=== PATIENT | male | born 1970 | race Caucasian/White ===

== ENCOUNTER 2018-10-24 08:10 | Outpatient (CLI) | payer OTHER ==
--- NOTE | 2018-10-24 09:21 | MRI ---
FMR of the right knee without contrast INDICATION: Concern for medial meniscal tear; patient injured right knee while playing basketball and has had continued right knee pain over one month COMPARISON: None FINDINGS: There is mild mucoid degeneration of the ACL without evidence of discrete tear. There are traction cy sts underlying the tibial spines measuring up to 2.0 x 1.8 cm. There is a mild joint effusion. There is a mild medial suprapatellar synovial plica. There is no evidence of full-thickness tear involving the MCL, PCL or LCLC. The extensor mechanism is intact; however, there is some increased T2 signal involving the proximal patellar tendon and adjace nt Hoffa's fat pad suspicious for mild patellar tendinitis. No full-thickness defect is seen involving the patellar articular cartilage: However, there is a part ial thickness articular cartilage fissure involving the medial patellar facet on image 20 of series 3 measuring 1 mm. The medial and lateral menisci are intact. There is mild chondrosis involving the lateral tibial plateau without evidence of full-thickness dung dral thinning. Very mild areas of chondrosis involving the anterior and medial aspect of the medial f emoral condyle without evidence of full-thickness defect. No bone marrow signal abnormality is grossl y evident. Visualized popliteus and IT band are normal appearing. IMPRESSION: 1. No evidence for meniscal tear. 2. Some diffuse enlargement and increased T2 signal involving the ACL suspicious more so for mucoid d egeneration than ACL sprain. There are degenerative traction-like cyst like abnormalities involving t he proximal tibia under lying the tibial spines. 3. Mild chondrosis involving the femoral tibial and patellofemoral compartments without evidence of a full-thickness defect. 4. Mild proximal patellar tendinosis.
== END 2018-10-24 08:11 | disposition home or self-care (01) ==
LOC: SCSMRI 08:10
PROVIDERS: ATTEND Orthopaedic Surgery
DX: S83.241A Other tear of medial meniscus, current injury, right knee, initial encounter (principal); M22.2X1 Patellofemoral disorders, right knee; M67.961 Unspecified disorder of synovium and tendon, right lower leg